=== PATIENT | female | born 1950 | race Caucasian/White ===

== ENCOUNTER 2018-02-04 09:23 | Inpatient (IN) | payer MEDICARE, BC ==
[2018-02-04] MEDS ORDERED: HYDROmorphone 1 MG/ML Syringe IVPUSH ONE (10:09)
--- NOTE | 2018-02-04 10:12 | EDM.PDOC ---
ED HPI GENERAL MEDICAL PROBLEM - General Chief Complaint: Abdominal Pain Stated Complaint: VOMITING, HERNIA Time Seen by Provider: 02/04/18 10:00 Source of Information: Reports: Patient, Family History Limitations: Reports: No Limitations - History of Present Illness INITIAL COMMENTS - FREE TEXT/NARRATIVE: 67-year-old female with chronic abdominal hernias, history of gastric bypass and colon cancer has an abdominal wall hernia that has been bothering her for months, but they wanted her to "lose some weight before surgery" for the past 12 -24 hours it's become incarcerated in the anterior aspect of the abdomen. It's firm, painful, and the patient feels very ill. No shortness of breath, no fevers. Onset: Gradual (Over the past 12 hours) Location: Reports: Abdomen Quality: Reports: Sharp, Stabbing Severity: Severe Abdominal Pain Score (Numeric/FACES): 10 - Related Data Allergies Allergy/AdvReac Type Severity Reaction Status Date / Time No Known Allergies Allergy Verified 02/04/18 10:13 Home Meds: Home Meds Atenolol [Tenormin] 25 mg PO DAILY 02/04/18 [History] Fluticasone Propionate [Flonase] 16 gm NS DAILY 02/04/18 [History] Gabapentin [Neurontin] 300 mg PO TID 02/04/18 [History] Losartan/Hydrochlorothiazide [Losartan-HCTZ 100-25 MG] 1 each PO DAILY 02/04/18 [History] amLODIPine Besylate [Norvasc] 5 mg PO DAILY 02/04/18 [History] ED ROS GENERAL - Review of Systems Review Of Systems: See Below Constitutional: Reports: Malaise. Denies: Fever, Chills Respiratory: Denies: Shortness of Breath Cardiovascular: Denies: Chest Pain GI/Abdominal: Reports: Abdominal Pain, Nausea. Denies: Vomiting Skin: Reports: Pallor Neurological: Reports: No Symptoms Psychiatric: Reports: No Symptoms ED EXAM, GI/ABD - Physical Exam Exam: See Below Exam Limited By: No Limitations General Appearance: Alert, Moderate Distress (Patient is extremely uncomfortable ) Eyes: Bilateral: Normal Appearance (No jaundice) Respiratory/Chest: No Respiratory Distress, Lungs Clear Cardiovascular: Regular Rate, Rhythm GI/Abdominal Exam: Rigid, Other (Patient has a fairly large transverse mass through the mid abdomen which is very tender to palpation, there are also well- healed surgical scars from past surgeries) Extremities: No: Pedal Edema Neurological: Alert, Oriented Psychiatric: Anxious Skin Exam: Warm, Dry, Pallor Course - Vital Signs Last Recorded V/S: Last Vital Signs Temp 99.5 F 02/04/18 15:03 Pulse 84 02/04/18 15:03 Resp 18 02/04/18 15:03 BP 119/47 L 02/04/18 15:03 Pulse Ox 100 02/04/18 15:03 - Orders/Labs/Meds Orders: Active Orders 24 hr Category Date Time Status Abdomen Pelvis wo Cont [CT] Stat Exams 02/04/18 10:10 Taken CULTURE ANAEROBIC [RM] Routine Lab 02/04/18 12:17 Results CULTURE WOUND + SMEAR [RM] Routine Lab 02/04/18 12:17 Results HYDROmorphone/Normal Saline [Dilaudid RAG SORTER [employer] CUTTER 15 MG in NS Med 02/04/18 12:31 Active 30 ML] 0 mg IV ASDIRECTED PRN Naloxone [Narcan] Med 02/04/18 12:31 Active 0.1 mg IV ASDIRECTED PRN Sodium Chloride 0.9% [Normal Saline] 1,000 ml Med 02/04/18 10:15 Active IV ASDIRECTED Medication Orders Hydromorphone HCl (Dilaudid Washerette Machine Operator 15 Mg In Ns 30 Ml) 0 mg IV ASDIRECTED PRN; Protocol PRN Reason: RAG SORTER [employer] CUTTER PAIN CONTROL Sodium Chloride (Normal Saline) 1,000 mls @ 1,000 mls/hr IV ASDIRECTED [facility] Last Admin: 02/04/18 10:26 Dose: 1,000 mls/hr Potassium Chloride/Dextrose/Sod Cl (D5 1/2 Ns W/ 20 Meq/L Kcl) 1,000 mls @ 125 mls/hr IV ASDIRECTED [facility] Last Admin: 02/04/18 14:43 Dose: 125 mls/hr Piperacillin/Tazobactam/ (Dextrose 3.375 gm/ Premix) 50 mls @ 100 mls/hr IV Q6H [facility] Metoprolol Tartrate (Lopressor) 5 mg IVPUSH Q6H [facility] Naloxone HCl (Narcan) 0.1 mg IV ASDIRECTED PRN PRN Reason: decreased respiratory rate Ondansetron HCl (Zofran) 4 mg IVPUSH Q6H PRN PRN Reason: Nausea/Vomiting Labs: Laboratory Tests 02/04/18 02/04/18 02/04/18 Range/Units 10:09 10:09 10:09 WBC 8.9 (4.5-11.0) K/uL RBC 4.67 (3.30-5.50) M/uL Hgb 9.6 L (12.0-15.0) g/dL Hct 31.3 L (36.0-48.0) % MCV 67 L (80-98) fL MCH 21 L (27-31) pg MCHC 31 L (32-36) % Plt Count 339 (150-400) K/uL Neut % (Auto) 89 H (36-66) % Lymph % (Auto) 7 L (24-44) % [place] % (Auto) 4 (2-6) % Eos % (Auto) 0 L (2-4) % Baso % (Auto) 0 (0-1) % Sodium 135 L (140-148) mmol/L Potassium 4.1 (3.6-5.2) mmol/L Chloride 97 L (100-108) mmol/L Carbon Dioxide 26 (21-32) mmol/L Anion Gap 16.1 H (5.0-14.0) mmol/L BUN 21 H (7-18) mg/dL Creatinine 0.8 (0.6-1.0) mg/dL Est Cr Clr Drug Dosing 57.99 mL/min Estimated GFR (MDRD) > 60 (>60) Glucose 147 H (74-106) mg/dL Lactic Acid 2.0 (0.4-2.0) mmol/L Calcium 8.3 L (8.5-10.1) mg/dL Total Bilirubin 0.3 (0.2-1.0) mg/dL AST 24 (15-37) U/L ALT 32 (12-78) U/L Alkaline Phosphatase 61 (46-116) U/L Total Protein 6.9 (6.4-8.2) g/dL Albumin 3.7 (3.4-5.0) g/dL Globulin 3.2 (2.3-3.5) g/dL Albumin/Globulin Ratio 1.2 (1.2-2.2) Amylase 52 (25-115) U/L Lipase 99 (73-393) U/L Meds: Medications Generic Name Dose Route Start Last Admin Trade Name Samantha PRN Reason Stop Dose Admin Hydromorphone HCl 0 mg 02/04/18 12:31 Dilaudid Washerette Machine Operator 15 Mg In Ns 30 Ml IV ASDIRECTED PRN RAG SORTER [employer] CUTTER PAIN CONTROL Protocol Sodium Chloride 1,000 mls @ 1,000 mls/hr 02/04/18 10:15 02/04/18 10:26 Normal Saline IV 1,000 mls/hr ASDIRECTED [facility] Administration Potassium Chloride/Dextrose/Sod Cl 1,000 mls @ 125 mls/hr 02/04/18 13:45 14:43 D5 1/2 Ns W/ 20 Meq/L Kcl IV 125 mls/hr ASDIRECTED [facility] Administration Piperacillin/Tazobactam/ 50 mls @ 100 mls/hr 02/04/18 18:00 Dextrose 3.375 gm/ Premix IV Q6H N[facility] Metoprolol Tartrate 5 mg 02/04/18 16:00 Lopressor IVPUSH Q6H [facility] Naloxone HCl 0.1 mg 02/04/18 12:31 Narcan IV ASDIRECTED PRN decreased respiratory rate Ondansetron HCl 4 mg 02/04/18 13:27 Zofran IVPUSH Q6H PRN Nausea/Vomiting Discontinued Medications Generic Name Dose Route Start Last Admin Trade Name Samantha PRN Reason Stop Dose Admin Dexamethasone Confirm 02/04/18 11:43 Dexamethasone Administered 02/04/18 11:44 Dose 4 mg .ROUTE .STK-MED ONE Fentanyl Confirm 02/04/18 11:42 Sublimaze Administered 02/04/18 11:43 Dose 250 mcg .ROUTE .STK-MED ONE Glycopyrrolate Confirm 02/04/18 11:43 Robinul Administered 02/04/18 11:44 Dose 1 mg .ROUTE .STK-MED ONE Hydromorphone HCl 1 mg 02/04/18 10:09 02/04/18 10:27 Dilaudid IVPUSH 02/04/18 10:10 1 mg ONETIME ONE Administration Hydromorphone HCl 0.5 mg 02/04/18 11:20 02/04/18 11:25 Dilaudid IVPUSH 02/04/18 11:21 0.5 mg ONETIME ONE Administration Piperacillin/Tazobactam/ 50 mls @ 100 mls/hr 02/04/18 11:15 02/04/18 11:18 Dextrose 3.375 gm/ Premix IV 02/04/18 11:44 100 mls/hr ONETIME ONE Administration Sodium Chloride Confirm 02/04/18 13:06 Normal Saline Administered 02/04/18 13:07 Dose 10 mls @ as directed .ROUTE .STK-MED ONE Lactated Ringer's Confirm 02/04/18 13:06 Ringers, Lactated Administered 02/04/18 13:07 Dose 1,000 mls @ as directed .ROUTE .STK-MED ONE Ketamine HCl Confirm 02/04/18 11:48 Ketalar Administered 02/04/18 11:49 Dose 500 mg .ROUTE .STK-MED ONE Midazolam HCl Confirm 02/04/18 11:42 Versed 1 Mg/Ml Administered 02/04/18 11:43 Dose 2 mg .ROUTE .STK-MED ONE Naloxone HCl Confirm 02/04/18 13:20 Narcan Administered 02/04/18 13:21 Dose 0.4 mg .ROUTE .STK-MED ONE Neostigmine Methylsulfate Confirm 02/04/18 11:43 Neostigmine Administered 02/04/18 11:44 Dose 5 mg .ROUTE .STK-MED ONE Ondansetron HCl 4 mg 02/04/18 10:09 02/04/18 10:25 Zofran IVPUSH 02/04/18 10:10 4 mg ONETIME ONE Administration Ondansetron HCl Confirm 02/04/18 11:43 Zofran Administered 02/04/18 11:44 Dose 4 mg .ROUTE .STK-MED ONE Propofol Confirm 02/04/18 11:43 Diprivan 20 Ml Administered 02/04/18 11:44 Dose 200 mg .ROUTE .STK-MED ONE Rocuronium [place] Confirm 02/04/18 11:43 Zemuron Administered 02/04/18 11:44 Dose 50 mg .ROUTE .STK-MED ONE Succinylcholine Chloride Confirm 02/04/18 11:43 Quelicin Administered 02/04/18 11:44 Dose 200 mg .ROUTE .STK-MED ONE - Re-Assessments/Exams Free Text/Narrative Re-Assessment/Exam: 02/04/18 10:35 An IV was started, patient was given 1 mg of IV Dilaudid and 4 mg of IV Zofran as well as 1 L of normal saline fluid bolus. CBC, CMP and lactic acid were drawn and a CT scan of the abdomen and pelvis without contrast was obtained. Surgical consultation was obtained. 02/04/18 11:00 White count is normal, hemoglobin is 9.6. CT scan confirms a large ventral hernia with a likely small bowel obstruction caused by the hernia. Patient will be going to surgery. Departure - Departure Time of Disposition: 11:57 Disposition: Admitted As Inpatient 68 Condition: Fair Clinical Impression: Incarcerated hernia of abdominal cavity, Small bowel obstruction Abdominal pain Qualifiers: Abdominal location: generalized Qualified Code(s): R10.84 - Generalized abdominal pain - Discharge Information - My Orders Last 24 Hours: My Active Orders 02/04/18 10:10 Abdomen Pelvis wo Cont [CT] Stat 02/04/18 10:15 Sodium Chloride 0.9% [Normal Saline] 1,000 ml IV ASDIRECTED - Assessment/Plan Last 24 Hours: My Active Orders 02/04/18 10:10 Abdomen Pelvis wo Cont [CT] Stat 02/04/18 10:15 Sodium Chloride 0.9% [Normal Saline] 1,000 ml IV ASDIRECTED
[2018-02-04] MEDS ORDERED: Sodium Chloride 0.9% 1,000 ML IV SCH (10:15)
[2018-02-04] MEDS: Ondansetron 4 MG/2 ML SDV IVPUSH ONE ×2 (10:24→10:25)
[2018-02-04] MEDS ORDERED: Piperacillin/Tazobactam/Dext 3.375 GM in Premix Bag 1 BAG IV ONE (11:15)
[2018-02-04] MEDS ORDERED: HYDROmorphone 0.5 MG/0.5 ML Syringe IVPUSH ONE (11:20)
[2018-02-04] MEDS ORDERED: fentaNYL 250 MCG/5 ML SDV ONE (11:42)
[2018-02-04] MEDS ORDERED: Midazolam 1 MG/ML 2 ML SDV ONE (11:42)
[2018-02-04] MEDS ORDERED: Glycopyrrolate 0.2 MG/ML 5 ML MDV ONE (11:43)
[2018-02-04] MEDS ORDERED: Neostigmine Methylsulfate 1 MG/ML 5 ML Syringe ONE (11:43)
[2018-02-04] MEDS ORDERED: Dexamethasone 4 MG/ML SDV ONE (11:43)
[2018-02-04] MEDS ORDERED: Propofol 200 MG/20 ML SDV ONE (11:43)
[2018-02-04] MEDS ORDERED: Ondansetron 4 MG/2 ML SDV ONE (11:43)
[2018-02-04] MEDS ORDERED: Succinylcholine 200 MG/10 ML MDV ONE (11:43)
[2018-02-04] MEDS ORDERED: Rocuronium 50 MG/5 ML Vial ONE (11:43)
[2018-02-04] MEDS ORDERED: Ketamine 500 MG/5 ML MDV ONE (11:48)
[2018-02-04] MEDS ORDERED: Naloxone 0.4 MG/ML SDV IV PRN (12:31)
[2018-02-04] MEDS ORDERED: HYDROmorphone/Normal Saline 15 MG/30 ML PCA IV PRN (12:31)
[2018-02-04] MEDS ORDERED: Lactated Ringers 1,000 ML ONE (13:06)
[2018-02-04] MEDS ORDERED: Sodium Chloride 0.9% 10 ML ONE (13:06)
[2018-02-04] MEDS ORDERED: Naloxone 0.4 MG/ML SDV ONE (13:20)
[2018-02-04] MEDS ORDERED: Ondansetron 4 MG/2 ML SDV IVPUSH PRN (13:27)
[2018-02-04] MEDS: D5 1/2 NS w/ 20 mEq/L KCl 1,000 ML IV SCH ×2 (14:43→23:06)
[2018-02-04] MEDS: Metoprolol Tartrate 5 MG/5 ML SDV IVPUSH SCH ×2 (16:26→22:05)
[2018-02-04] MEDS: Piperacillin/Tazobactam/Dext 3.375 GM in Premix Bag 1 BAG IV SCH ×2 (17:02→23:07)
[2018-02-05] MEDS: Metoprolol Tartrate 5 MG/5 ML SDV IVPUSH SCH ×4 (03:34→21:46)
[2018-02-05] MEDS: Piperacillin/Tazobactam/Dext 3.375 GM in Premix Bag 1 BAG IV SCH ×4 (05:33→23:14)
[2018-02-05] MEDS: D5 1/2 NS w/ 20 mEq/L KCl 1,000 ML IV SCH ×2 (08:08→16:37)
--- NOTE | 2018-02-05 08:49 | PCM.SURGPN ---
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 Admission Diagnosis/Problem: Hernia with strangulation Functional Status: Reports: Pain Controlled, Ambulating, Urinating, Incentive Spirometry - Review of Systems General: Reports: No Symptoms HEENT: Reports: No Symptoms Pulmonary: Reports: No Symptoms Cardiovascular: Reports: No Symptoms Gastrointestinal: Denies: Flatus Genitourinary: Reports: No Symptoms Musculoskeletal: Reports: No Symptoms Skin: Reports: No Symptoms Neurological: Reports: No Symptoms Psychiatric: Reports: No Symptoms - Patient Data Vitals - Most Recent: Last Vital Signs Temp 99.4 F 02/05/18 03:26 Pulse 77 02/05/18 03:34 Resp 16 02/05/18 03:26 BP 120/44 L 02/05/18 03:34 Pulse Ox 96 02/05/18 07:12 Weight - Most Recent: 159 lb 9.835 oz I&O - Last 24 Hours: Intake & Output 02/04/18 02/05/18 02/05/18 22:59 06:59 14:59 Intake Total 339 1504 Output Total 375 300 Balance -36 1204 Lab Results Last 24 Hrs: Laboratory Results - last 24 hr 02/04/18 02/04/18 02/04/18 Range/Units 10:09 10:09 10:09 WBC 8.9 (4.5-11.0) K/uL RBC 4.67 (3.30-5.50) M/uL Hgb 9.6 L (12.0-15.0) g/dL Hct 31.3 L (36.0-48.0) % MCV 67 L (80-98) fL MCH 21 L (27-31) pg MCHC 31 L (32-36) % Plt Count 339 (150-400) K/uL Neut % (Auto) 89 H (36-66) % Lymph % (Auto) 7 L (24-44) % [place] % (Auto) 4 (2-6) % Eos % (Auto) 0 L (2-4) % Baso % (Auto) 0 (0-1) % Sodium 135 L (140-148) mmol/L Potassium 4.1 (3.6-5.2) mmol/L Chloride 97 L (100-108) mmol/L Carbon Dioxide 26 (21-32) mmol/L Anion Gap 16.1 H (5.0-14.0) mmol/L BUN 21 H (7-18) mg/dL Creatinine 0.8 (0.6-1.0) mg/dL Est Cr Clr Drug Dosing 57.99 mL/min Estimated GFR (MDRD) > 60 (>60) Glucose 147 H (74-106) mg/dL Lactic Acid 2.0 (0.4-2.0) mmol/L Calcium 8.3 L (8.5-10.1) mg/dL Total Bilirubin 0.3 (0.2-1.0) mg/dL AST 24 (15-37) U/L ALT 32 (12-78) U/L Alkaline Phosphatase 61 (46-116) U/L Total Protein 6.9 (6.4-8.2) g/dL Albumin 3.7 (3.4-5.0) g/dL Globulin 3.2 (2.3-3.5) g/dL Albumin/Globulin Ratio 1.2 (1.2-2.2) Amylase 52 (25-115) U/L Lipase 99 (73-393) U/L 02/05/18 02/05/18 Range/Units 06:00 06:00 WBC 10.0 (4.5-11.0) K/uL RBC 4.19 (3.30-5.50) M/uL Hgb 8.5 L (12.0-15.0) g/dL Hct 28.0 L (36.0-48.0) % MCV 67 L (80-98) fL MCH 20 L (27-31) pg MCHC 30 L (32-36) % Plt Count (150-400) K/uL Neut % (Auto) (36-66) % Lymph % (Auto) (24-44) % [place] % (Auto) (2-6) % Eos % (Auto) (2-4) % Baso % (Auto) (0-1) % Sodium 134 L (140-148) mmol/L Potassium 4.1 (3.6-5.2) mmol/L Chloride 101 (100-108) mmol/L Carbon Dioxide 23 (21-32) mmol/L Anion Gap 14.1 H (5.0-14.0) mmol/L BUN 10 D (7-18) mg/dL Creatinine 0.7 (0.6-1.0) mg/dL Est Cr Clr Drug Dosing 66.28 mL/min Estimated GFR (MDRD) > 60 (>60) Glucose 147 H (74-106) mg/dL Lactic Acid (0.4-2.0) mmol/L Calcium 7.8 L (8.5-10.1) mg/dL Total Bilirubin (0.2-1.0) mg/dL AST (15-37) U/L ALT (12-78) U/L Alkaline Phosphatase (46-116) U/L Total Protein (6.4-8.2) g/dL Albumin (3.4-5.0) g/dL Globulin (2.3-3.5) g/dL Albumin/Globulin Ratio (1.2-2.2) Amylase (25-115) U/L Lipase (73-393) U/L Juan Manuel Results Last 24 Hrs: Microbiology 02/04/18 12:17 Gram Stain - Final Peritoneal Fluid Wound Culture - Preliminary Anaerobic Culture - Preliminary NO GROWTH AFTER 1 DAY Med Orders - Current: Current Medications Hydromorphone HCl (Dilaudid Transfer Worker 15 Mg In Ns 30 Ml) 0 mg IV ASDIRECTED PRN; Protocol PRN Reason: PRODUCT RESPONSIBILITY LIAISON PAIN CONTROL Sodium Chloride (Normal Saline) 1,000 mls @ 1,000 mls/hr IV ASDIRECTED [facility] Last Admin: 02/04/18 10:26 Dose: 1,000 mls/hr Potassium Chloride/Dextrose/Sod Cl (D5 1/2 Ns W/ 20 Meq/L Kcl) 1,000 mls @ 125 mls/hr IV ASDIRECTED [facility] Last Admin: 02/05/18 08:08 Dose: 125 mls/hr Piperacillin/Tazobactam/ (Dextrose 3.375 gm/ Premix) 50 mls @ 100 mls/hr IV Q6H [facility] Last Admin: 02/05/18 05:33 Dose: 100 mls/hr Metoprolol Tartrate (Lopressor) 5 mg IVPUSH Q6H [facility] Last Admin: 02/05/18 03:34 Dose: Not Given Naloxone HCl (Narcan) 0.1 mg IV ASDIRECTED PRN PRN Reason: decreased respiratory rate Ondansetron HCl (Zofran) 4 mg IVPUSH Q6H PRN PRN Reason: Nausea/Vomiting Discontinued Medications Dexamethasone (Dexamethasone) Confirm Administered Dose 4 mg .ROUTE .STK-MED ONE Stop: 02/04/18 11:44 Fentanyl (Sublimaze) Confirm Administered Dose 250 mcg .ROUTE .STK-MED ONE Stop: 02/04/18 11:43 Glycopyrrolate (Robinul) Confirm Administered Dose 1 mg .ROUTE .ST-MED ONE Stop: 02/04/18 11:44 Hydromorphone HCl (Dilaudid) 1 mg IVPUSH ONETIME ONE Stop: 02/04/18 10:10 Last Admin: 02/04/18 10:27 Dose: 1 mg Hydromorphone HCl (Dilaudid) 0.5 mg IVPUSH ONETIME ONE Stop: 02/04/18 11:21 Last Admin: 02/04/18 11:25 Dose: 0.5 mg Piperacillin/Tazobactam/ (Dextrose 3.375 gm/ Premix) 50 mls @ 100 mls/hr IV ONETIME ONE Stop: 02/04/18 11:44 Last Admin: 02/04/18 11:18 Dose: 100 mls/hr Sodium Chloride (Normal Saline) Confirm Administered Dose 10 mls @ as directed .ROUTE .ST-MED ONE Stop: 02/04/18 13:07 Lactated Ringer's (Ringers, Lactated) Confirm Administered Dose 1,000 mls @ as directed .ROUTE .ST-MED ONE Stop: 02/04/18 13:07 Ketamine HCl (Ketalar) Confirm Administered Dose 500 mg .ROUTE .ST-MED ONE Stop: 02/04/18 11:49 Midazolam HCl (Versed 1 Mg/Ml) Confirm Administered Dose 2 mg .ROUTE .STK-MED ONE Stop: 02/04/18 11:43 Naloxone HCl (Narcan) Confirm Administered Dose 0.4 mg .ROUTE .STK-MED ONE Stop: 02/04/18 13:21 Neostigmine Methylsulfate (Neostigmine) Confirm Administered Dose 5 mg .ROUTE .STK-MED ONE Stop: 02/04/18 11:44 Ondansetron HCl (Zofran) 4 mg IVPUSH ONETIME ONE Stop: 02/04/18 10:10 Last Admin: 02/04/18 10:25 Dose: 4 mg Ondansetron HCl (Zofran) Confirm Administered Dose 4 mg .ROUTE .STK-MED ONE Stop: 02/04/18 11:44 Propofol (Diprivan 20 Ml) Confirm Administered Dose 200 mg .ROUTE .STK-MED ONE Stop: 02/04/18 11:44 Rocuronium [place] (Zemuron) Confirm Administered Dose 50 mg .ROUTE .STK-MED ONE Stop: 02/04/18 11:44 Succinylcholine Chloride (Quelicin) Confirm Administered Dose 200 mg .ROUTE .STK -MED ONE Stop: 02/04/18 11:44 - Exam Wound/Incisions: Drainage Quality Assessment: DVT Prophylaxis (No Lovenox as Hgb is down a little. ) General: Alert, Oriented, Cooperative, No Acute Distress GI/Abdominal Exam: Abnormal Bowel Sounds (Quite). No: Normal Bowel Sounds Extremities: Normal Inspection Skin: Warm, Dry, Intact Neurological: No New Focal Deficit Psy/Mental Status: Alert, Normal Affect, Normal Mood - Problem List & Annotations (1) Strangulated ventral incisional hernia SNOMED Code(s): 035826948 Code(s): K43.0 - INCISIONAL HERNIA WITH OBSTRUCTION, WITHOUT GANGRENE Status: Acute Current Visit: Yes - Problem List Review Problem List Initiated/Reviewed/Updated: Yes - My Orders Last 24 Hours: Active Orders 24 hr Category Date Time Status Patient Status [ADT] Routine ADT 02/04/18 13:27 Active Ambulate [RC] PER UNIT ROUTINE Care 02/04/18 13:27 Active Antiembolic Devices [RC] .Routine Care 02/04/18 13:41 Active Gastrointestinal Tube Mgmt [RC] ASDIRECTED Care 02/04/18 13:39 Active Head of Bed Elevation [RC] ASDIRECTED Care 02/04/18 13:39 Active Intake and Output [RC] Q4HR Care 02/04/18 13:39 Active Notify Provider Vital Signs [RC] PRN Care 02/04/18 13:40 Active Oxygen Therapy [RC] PRN Care 02/04/18 13:27 Active Pulse Oximetry [RC] CONTINUOUS Care 02/04/18 13:40 Active RT Incentive Spirometry [RC] ASDIRECTED Care 02/04/18 13:27 Active Up With Assistance [RC] ASDIRECTED Care 02/04/18 13:27 Active Up to Chair [RC] ASDIRECTED Care 02/04/18 13:27 Active Urinary Catheter Removal [RC] Per Unit Routine Care 02/04/18 13:27 Inactive VTE/DVT Education [RC] Click to Edit Care 02/04/18 13:41 Active Vital Signs [RC] PER UNIT ROUTINE Care 02/04/18 13:27 Active Respiratory Care Assess and Treatment [CONS] Routine Cons 02/04/18 13:27 Active Nothing Per Oral Diet [DIET] Diet 02/04/18 Dinner Active Abdomen Pelvis wo Cont [CT] Stat Exams 02/04/18 10:10 Taken BASIC METABOLIC PANEL,BMP [CHEM] DAILY Lab 02/06/18 05:11 Ordered BASIC METABOLIC PANEL,BMP [CHEM] DAILY Lab 02/07/18 05:11 Ordered BASIC METABOLIC PANEL,BMP [CHEM] DAILY Lab 02/08/18 05:11 Ordered BASIC METABOLIC PANEL,BMP [CHEM] DAILY Lab 02/09/18 05:11 Ordered BASIC METABOLIC PANEL,BMP [CHEM] DAILY Lab 02/10/18 05:11 Ordered CBC W/O DIFF,HEMOGRAM [HEME] DAILY Lab 02/06/18 05:11 Ordered CBC W/O DIFF,HEMOGRAM [HEME] DAILY Lab 02/07/18 05:11 Ordered CBC W/O DIFF,HEMOGRAM [HEME] DAILY Lab 02/08/18 05:11 Ordered CBC W/O DIFF,HEMOGRAM [HEME] DAILY Lab 02/09/18 05:11 Ordered CBC W/O DIFF,HEMOGRAM [HEME] DAILY Lab 02/10/18 05:11 Ordered CULTURE ANAEROBIC [RM] Routine Lab 02/04/18 12:17 Results CULTURE WOUND + SMEAR [RM] Routine Lab 02/04/18 12:17 Results D5 1/2 NS w/ 20 mEq/L KCl 1,000 ml Med 02/04/18 13:45 Active IV ASDIRECTED HYDROmorphone/Normal Saline [Dilaudid PRODUCT RESPONSIBILITY LIAISON 15 MG in NS Med 02/04/18 12:31 Active 30 ML] 0 mg IV ASDIRECTED PRN Metoprolol Tartrate [Lopressor] Med 02/04/18 16:00 Active 5 mg IVPUSH Q6H Naloxone [Narcan] Med 02/04/18 12:31 Active 0.1 mg IV ASDIRECTED PRN Ondansetron [Zofran] Med 02/04/18 13:27 Active 4 mg IVPUSH Q6H PRN Piperacillin/Tazobactam/Dext [Zosyn in Dextrose Iso- Med 02/04/18 18:00 Active Osmotic 3.375 GM] 3.375 gm Premix Bag 1 bag IV Q6H Sodium Chloride 0.9% [Normal Saline] 1,000 ml Med 02/04/18 10:15 Active IV ASDIRECTED Abdominal Binder [OM.PC] Per Unit Routine Oth 02/04/18 13:39 Ordered DVT/VTE Prophylaxis Reflex [OM.PC] Per Unit Routine Oth 02/04/18 13:41 Ordered Sequential Compression Device [OM.PC] Routine Oth 02/04/18 13:27 Ordered Resuscitation Status Routine Resus Stat 02/04/18 13:27 Ordered Medication Orders Hydromorphone HCl (Dilaudid Transfer Worker 15 Mg In Ns 30 Ml) 0 mg IV ASDIRECTED PRN; Protocol PRN Reason: PRODUCT RESPONSIBILITY LIAISON PAIN CONTROL Sodium Chloride (Normal Saline) 1,000 mls @ 1,000 mls/hr IV ASDIRECTED [facility] Last Admin: 02/04/18 10:26 Dose: 1,000 mls/hr Potassium Chloride/Dextrose/Sod Cl (D5 1/2 Ns W/ 20 Meq/L Kcl) 1,000 mls @ 125 mls/hr IV ASDIRECTED [facility] Last Admin: 02/05/18 08:08 Dose: 125 mls/hr Infusion: 02/05/18 07:06 Dose: 125 mls/hr Admin: 02/04/18 23:06 Dose: 125 mls/hr Infusion: 02/04/18 22:43 Dose: 125 mls/hr Admin: 02/04/18 14:43 Dose: 125 mls/hr Piperacillin/Tazobactam/ (Dextrose 3.375 gm/ Premix) 50 mls @ 100 mls/hr IV Q6H [facility] Last Admin: 02/05/18 05:33 Dose: 100 mls/hr Admin: 02/04/18 23:07 Dose: 100 mls/hr Admin: 02/04/18 17:02 Dose: 100 mls/hr Metoprolol Tartrate (Lopressor) 5 mg IVPUSH Q6H [facility] Last Admin: 02/05/18 03:34 Dose: Not Given Admin: 02/04/18 22:05 Dose: Not Given Admin: 02/04/18 16:26 Dose: 5 mg Naloxone HCl (Narcan) 0.1 mg IV ASDIRECTED PRN PRN Reason: decreased respiratory rate Ondansetron HCl (Zofran) 4 mg IVPUSH Q6H PRN PRN Reason: Nausea/Vomiting - Assessment Assessment (Free Text/Narrative):: She appears well. Hgb is down a little. No NG output. She does not want it removed if we might have to put it back in. - Plan Plan (Free Text/Narrative):: No Lovenox. Plug NG, restart PRN. D/C Marifer.
[2018-02-06] MEDS: D5 1/2 NS w/ 20 mEq/L KCl 1,000 ML IV SCH (01:29)
[2018-02-06] MEDS: Metoprolol Tartrate 5 MG/5 ML SDV IVPUSH SCH ×4 (03:06→22:52)
[2018-02-06] MEDS: Piperacillin/Tazobactam/Dext 3.375 GM in Premix Bag 1 BAG IV SCH ×4 (05:32→23:07)
[2018-02-06] MEDS ORDERED: Bisacodyl 10 MG Supp RECTAL ONE (06:40)
[2018-02-06] MEDS ORDERED: D5 1/2 NS w/ 20 mEq/L KCl 1,000 ML IV SCH (06:45)
[2018-02-06] MEDS: Ondansetron 4 MG/2 ML SDV IVPUSH ONE (09:35)
--- NOTE | 2018-02-06 10:28 | OR ---
DATE OF PROCEDURE: 02/04/2018 PREOPERATIVE DIAGNOSIS: Incarcerated strangulated incisional hernia. POSTOPERATIVE DIAGNOSES: Incarcerated strangulated incisional hernia with infarcted small bowel. PROCEDURE: 1. Exploratory laparotomy. 2. Reduction of strangulated hernia. 3. Small bowel resection with primary anastomosis. SURGEON: Hal Weinberg MD. ANESTHESIA: General endotracheal. INDICATION: This 67-year-old white female has a history of a Jessica-en-Y gastric bypass done in the [facility] in the remote past. Additionally, she has a history of colon cancer for which she underwent a bowel resection. She subsequently has developed multiple incisional hernias. These have been repaired in the past with mesh. She has a recurrent midline hernia of which she has been told in the [facility] that she should lose a little weight before repairing it. She is up here in [facility] visiting when last night she developed severe abdominal pain. She tried to "tough it out," but her son finally convinced her to come into the emergency room. She came into the emergency room where she is found to have a strangulated hernia. CAT scan confirms there is small bowel within it. She is taken to the operating room for an exploratory laparotomy. I counseled her for surgery including risks and alternatives, and she gave her informed consent to proceed. DESCRIPTION OF PROCEDURE: After adequate general endotracheal anesthesia was obtained, a Caicedo catheter was placed. Her abdomen was prepped and draped in the usual sterile fashion. Time-out was held. A midline incision was made over the strangulated hernia. It was extended superiorly and inferiorly beyond this a little. We then entered the abdomen inferior to the strangulated hernia by carefully dividing the linea alba and then the peritoneum. We encountered essentially no adhesions in the abdominal cavity. We extended the incision carefully superiorly up to the strangulated hernia. We were able to then open the fascia and release the hernia. A foul odor was encountered. We excised the hernia sac throughout its entire length. We elevated the strangulated portion up out of the abdomen. It was infarcted. We divided the bowel proximally and distally to this with the [place] using a blue load. The intervening mesentery was divided with the [place] using a white load. The specimen was delivered from the field. There was also some fluid in the hernia sac, which was sent for Gram stain and culture. The Gram stain returned gram-positive cocci and gram- negative rods. A functional end-to-end anastomosis was then performed. This was done by opening the antimesenteric end of each staple line and placing an 80 mm blue load stapler in each limb. We then fired the stapler. The distal end of the staple line was bolstered with 3-0 silk suture. The stapler was removed. The opening through which the staple had been placed was then closed again with a blue load of allie. This last staple line was oversewn with Lembert stitches of 3-0 GI silk. All looked well. The abdomen was irrigated and suctioned dry. We did excise the hernia sac and sent it to Pathology. This was fairly large. 3- 0 Vicryl was then used to close the mesenteric defect. The abdomen was copiously irrigated again with warm saline and suctioned dry. Tisseel fibrin sealant was placed over the anastomosis, and it was then returned to the abdominal cavity. All looked well. We then closed the fascia which had mesh present with a running stitch of #1 Prolene. The incision was irrigated and suctioned dry. We covered the Prolene with subcutaneous tissue using 3-0 Vicryl suture. The incision was then packed open with plan for delayed primary closure in a few days. A sterile dressing was applied. The anesthesia was reversed. She was extubated and brought to recovery room in fair condition. Hal Weinberg MD /[id number] VANESSA
[2018-02-07] MEDS: Metoprolol Tartrate 5 MG/5 ML SDV IVPUSH SCH ×2 (03:32→10:00)
[2018-02-07] MEDS: Piperacillin/Tazobactam/Dext 3.375 GM in Premix Bag 1 BAG IV SCH ×4 (05:48→23:15)
[2018-02-07] MEDS ORDERED: Bupivacaine 0.5% 50 ML MDV ONE (06:42)
[2018-02-07] MEDS ORDERED: Lidocaine 1% with EPINEPHrine 1:100,000 50 ML MDV ONE (06:42)
[2018-02-07] MEDS ORDERED: Midazolam 1 MG/ML 2 ML SDV ONE (07:05)
[2018-02-07] MEDS ORDERED: fentaNYL 100 MCG/2 ML SDV ONE (07:05)
[2018-02-07] MEDS ORDERED: Propofol 200 MG/20 ML SDV ONE (07:05)
--- NOTE | 2018-02-07 10:02 | OR ---
DATE OF PROCEDURE: 02/07/2018 PREOPERATIVE DIAGNOSIS: Open incision status post bowel resection for strangulated incisional hernia. POSTOPERATIVE DIAGNOSIS: Open incision status post bowel resection for strangulated incisional hernia. PROCEDURE: Delayed primary closure. SURGEON: Hal Weinberg MD. ANESTHESIA: IV anesthesia with monitored anesthesia care. INDICATION: This 67-year-old white female underwent, almost three days ago, an exploratory laparotomy with small bowel resection for a strangulated incisional hernia. Fluid in the hernia sac grew Strep viridans and E. coli. Her incision was left open for delayed primary closure. She is taken to the operating room at this time for this. She is doing well. I counseled her for a delayed primary closure including risks and alternatives, and she gave her informed consent to proceed. DESCRIPTION OF PROCEDURE: After adequate IV anesthesia was obtained, the dressings were removed. Her abdomen was prepped and draped in the usual sterile fashion. Time-out was held. The incision looked well. It was irrigated with normal saline and patted dry. The skin was then closed with skin allie. A sterile dressing was applied. The patient tolerated the procedure well and was brought to recovery room in a good condition. Hal Weinberg MD /[id number] MTDD
[2018-02-07] MEDS: Gabapentin 300 MG Cap PO SCH ×2 (16:10→21:08)
[2018-02-07] MEDS: amLODIPine 5 MG Tab PO SCH (16:11)
[2018-02-07] MEDS: Atenolol 25 MG Tab PO SCH (16:12)
[2018-02-07] MEDS: Acetaminophen/HYDROcodone 325-5 MG Tab PO PRN (17:48)
[2018-02-08] MEDS: Piperacillin/Tazobactam/Dext 3.375 GM in Premix Bag 1 BAG IV SCH ×2 (05:11→13:27)
[2018-02-08] MEDS: Acetaminophen/HYDROcodone 325-5 MG Tab PO PRN ×2 (06:17→14:00)
[2018-02-08] MEDS: amLODIPine 5 MG Tab PO SCH (08:13)
[2018-02-08] MEDS: Gabapentin 300 MG Cap PO SCH ×2 (08:13→14:01)
[2018-02-08] MEDS: Atenolol 25 MG Tab PO SCH (08:13)
[2018-02-08] MEDS ORDERED: Hydrochlorothiazide 25 MG Tab PO SCH (09:00)
[2018-02-08] MEDS ORDERED: Losartan 50 MG Tab PO SCH (09:00)
--- NOTE | 2018-02-19 10:11 | PCM.SURGPN ---
- General Info Date of Service: 02/06/18 Date of Surgery/Procedure: 02/04/18 POD#: 2 Functional Status: Reports: Pain Controlled, Ambulating, Urinating - Review of Systems General: Reports: No Symptoms HEENT: Reports: No Symptoms Pulmonary: Reports: No Symptoms Cardiovascular: Reports: No Symptoms Gastrointestinal: Denies: Flatus Genitourinary: Reports: No Symptoms Musculoskeletal: Reports: No Symptoms Skin: Reports: No Symptoms Neurological: Reports: No Symptoms Psychiatric: Reports: No Symptoms - Patient Data Vitals - Most Recent: Last Vital Signs Temp 98.0 F 02/08/18 11:08 Pulse 62 02/08/18 11:08 Resp 16 02/08/18 11:08 BP 143/67 H 02/08/18 11:08 Pulse Ox 97 02/08/18 11:08 Weight - Most Recent: 159 lb 9.835 oz Med Orders - Current: Current Medications Discontinued Medications Hydrocodone Bitart/Acetaminophen ([place] 325-5 Mg) 1 - 2 tab PO Q4H PRN PRN Reason: Pain Last Admin: 02/08/18 14:00 Dose: 2 tab Amlodipine Besylate (Norvasc) 5 mg PO DAILY [facility] Last Admin: 02/08/18 08:13 Dose: 5 mg Atenolol (Tenormin) 25 mg PO DAILY [facility] Last Admin: 02/08/18 08:13 Dose: 25 mg Bisacodyl (Dulcolax) 10 mg RECTAL ONETIME ONE Stop: 02/06/18 06:41 Last Admin: 02/06/18 10:40 Dose: 10 mg Bupivacaine HCl (Marcaine 0.5%) Confirm Administered Dose 50 ml .ROUTE .STK-MED ONE Stop: 02/07/18 06:43 Dexamethasone (Dexamethasone) Confirm Administered Dose 4 mg .ROUTE .STK-MED ONE Stop: 02/04/18 11:44 Fentanyl (Sublimaze) Confirm Administered Dose 250 mcg .ROUTE .STK-MED ONE Stop: 02/04/18 11:43 Fentanyl (Sublimaze) Confirm Administered Dose 100 mcg .ROUTE .STK-MED ONE Stop: 02/07/18 07:06 Gabapentin (Neurontin) 300 mg PO TID [facility] Last Admin: 02/08/18 14:01 Dose: 300 mg Glycopyrrolate (Robinul) Confirm Administered Dose 1 mg .ROUTE .STK-MED ONE Stop: 02/04/18 11:44 Hydrochlorothiazide (Hydrochlorothiazide) 25 mg PO DAILY [facility] Last Admin: 02/08/18 08:12 Dose: 25 mg Hydromorphone HCl (Dilaudid) 1 mg IVPUSH ONETIME ONE Stop: 02/04/18 10:10 Last Admin: 02/04/18 10:27 Dose: 1 mg Hydromorphone HCl (Dilaudid) 0.5 mg IVPUSH ONETIME ONE Stop: 02/04/18 11:21 Last Admin: 02/04/18 11:25 Dose: 0.5 mg Hydromorphone HCl (Dilaudid Stockbroker 15 Mg In Ns 30 Ml) 0 mg IV ASDIRECTED PRN; Protocol PRN Reason: [employer] PAIN CONTROL Last Admin: 02/07/18 09:40 Dose: 15 mg Sodium Chloride (Normal Saline) 1,000 mls @ 1,000 mls/hr IV ASDIRECTED [facility] Last Admin: 02/04/18 10:26 Dose: 1,000 mls/hr Piperacillin/Tazobactam/ (Dextrose 3.375 gm/ Premix) 50 mls @ 100 mls/hr IV ONETIME ONE Stop: 02/04/18 11:44 Last Admin: 02/04/18 11:18 Dose: 100 mls/hr Sodium Chloride (Normal Saline) Confirm Administered Dose 10 mls @ as directed .ROUTE .[facility] ONE Stop: 02/04/18 13:07 Lactated Ringer's (Ringers, Lactated) Confirm Administered Dose 1,000 mls @ as directed .ROUTE .[facility] ONE Stop: 02/04/18 13:07 Potassium Chloride/Dextrose/Sod Cl (D5 1/2 Ns W/ 20 Meq/L Kcl) 1,000 mls @ 125 mls/hr IV ASDIRECTED [facility] Last Admin: 02/06/18 01:29 Dose: 125 mls/hr Piperacillin/Tazobactam/ (Dextrose 3.375 gm/ Premix) 50 mls @ 100 mls/hr IV Q6H [facility] Last Admin: 02/08/18 13:27 Dose: Not Given Potassium Chloride/Dextrose/Sod Cl (D5 1/2 Ns W/ 20 Meq/L Kcl) 1,000 mls @ 50 mls/hr IV ASDIRECTED [facility] Last Admin: 02/06/18 17:05 Dose: 50 mls/hr Ketamine HCl (Ketalar) Confirm Administered Dose 500 mg .ROUTE .STK-MED ONE Stop: 02/04/18 11:49 Lidocaine/Epinephrine (Xylocaine 1% With Epinephrine 1:100,000) Confirm Administered Dose 50 ml .ROUTE .STK-MED ONE Stop: 02/07/18 06:43 Losartan Potassium (Cozaar) 100 mg PO DAILY [facility] Last Admin: 02/08/18 08:13 Dose: 100 mg Metoprolol Tartrate (Lopressor) 5 mg IVPUSH Q6H [facility] Last Admin: 02/07/18 10:00 Dose: Not Given Midazolam HCl (Versed 1 Mg/Ml) Confirm Administered Dose 2 mg .ROUTE .STK-MED ONE Stop: 02/04/18 11:43 Midazolam HCl (Versed 1 Mg/Ml) Confirm Administered Dose 2 mg .ROUTE .STK-MED ONE Stop: 02/07/18 07:06 Naloxone HCl (Narcan) 0.1 mg IV ASDIRECTED PRN PRN Reason: decreased respiratory rate Naloxone HCl (Narcan) Confirm Administered Dose 0.4 mg .ROUTE .STK-MED ONE Stop: 02/04/18 13:21 Neostigmine Methylsulfate (Neostigmine) Confirm Administered Dose 5 mg .ROUTE .STK-MED ONE Stop: 02/04/18 11:44 Ondansetron HCl (Zofran) 4 mg IVPUSH ONETIME ONE Stop: 02/04/18 10:10 Last Admin: 02/06/18 09:35 Dose: Not Given Ondansetron HCl (Zofran) Confirm Administered Dose 4 mg .ROUTE .STK-MED ONE Stop: 02/04/18 11:44 Ondansetron HCl (Zofran) 4 mg IVPUSH Q6H PRN PRN Reason: Nausea/Vomiting Propofol (Diprivan 20 Ml) Confirm Administered Dose 200 mg .ROUTE .STK-MED ONE Stop: 02/04/18 11:44 Propofol (Diprivan 20 Ml) Confirm Administered Dose 200 mg .ROUTE .STK-MED ONE Stop: 02/07/18 07:06 Rocuronium [place] (Zemuron) Confirm Administered Dose 50 mg .ROUTE .STK-MED ONE Stop: 02/04/18 11:44 Succinylcholine Chloride (Quelicin) Confirm Administered Dose 200 mg .ROUTE .K -MED ONE Stop: 02/04/18 11:44 - Exam Wound/Incisions: Dressing Dry and Intact General: Alert, Oriented, Cooperative Lungs: Clear to Auscultation, Normal Respiratory Effort Cardiovascular: Regular Rate, Regular Rhythm GI/Abdominal Exam: Abnormal Bowel Sounds (Hypoactive) Extremities: Normal Inspection Skin: Warm, Dry, Intact Neurological: No New Focal Deficit Psy/Mental Status: Alert, Normal Affect, Normal Mood - Problem List & Annotations (1) Strangulated ventral incisional hernia SNOMED Code(s): 573055123 Code(s): K43.0 - INCISIONAL HERNIA WITH OBSTRUCTION, WITHOUT GANGRENE Status: Acute - Problem List Review Problem List Initiated/Reviewed/Updated: Yes - Assessment Assessment (Free Text/Narrative):: Doing well. Waiting for GI recovery. Essentially no NG output. - Plan Plan (Free Text/Narrative):: D/C NG tube. Plan DPC tomorrow.
--- NOTE | 2018-02-19 10:21 | PCM.DCSUM1 ---
Discharge Summary - Hospital Course Free Text/Narrative:: This 68 year old white female is s/p a RNY GBP in the [facility] in the remote past. She also has undergone a bowel resection in the [facility] for colon cancer in the [facility]. She subsequently has had incisional hernias repaired there in the past with mesh. She has developed another incisonal hernia for which she was told she should lose weight before undergoing repair. She was visiting in the [place] area when the hernia protruded, was quite painful and could not be reduced. She tried to "tough it out," but her son finally talked her into coming in to the ER on February 04, 2018. Here she was found to have a strangulated incisional hernia. She was taken to the OR where the hernia sac was opened releasing a foul odor with some fluid encountered which cultured Strep viridans and E coli. She was started on Zosyn preoperatively and continued on it post operatively. She underwent a bowel resection with primary anastomosis. Her wound was left open for delaped primary closure which was performed on February 07, 2018. She then had a bowel movement so was started on food. She was eating well with bowel function recovered so was discharge home on February 08, 2018 in good condition. I will see her next week for skin staple removal. Brief History: See above narrative. - Discharge Data Discharge Date: 02/08/18 Discharge Disposition: Home, Self-Care 01 Condition: Fair - Discharge Diagnosis/Problem(s) (1) Strangulated ventral incisional hernia SNOMED Code(s): 723771134 ICD Code: K43.0 - INCISIONAL HERNIA WITH OBSTRUCTION, WITHOUT GANGRENE Status: Acute - Patient Summary/Data Operative Procedure(s) Performed: Exploratory laparotomy, reduction of strangulated incisional hernia, small bowel resection with primary anastomosis. Delayed primary closure. Consults: Consultations 02/04/18 13:27 Respiratory Care Assess and Treatment [CONS] Routine Comment: Physician Instructions: - Patient Instructions Diet: Regular Diet as Tolerated Diet, Other: soft foods for 1 week Activity: As Tolerated, No Lifting Over 10 Pounds Activity, Other: for 6 weeks Driving: Do Not Drive Driving, Other: while on narcotic pain medications Showering/Bathing: May Shower Wound/Incision Care: Keep Operative Site/Wound Site Clean and Dry Notify Provider of: Fever, Increased Pain, Swelling and Redness, Drainage, Nausea and/or Vomiting - Discharge Plan Prescriptions/Med Rec: Acetaminophen/HYDROcodone [[place] 325-5 MG] 1 - 2 tab PO Q4H PRN #30 tab PRN Reason: Pain Home Medications: Home Meds Atenolol [Tenormin] 25 mg PO DAILY 02/04/18 [History] Doxycycline Monohydrate 100 mg PO BID 02/04/18 [History] Fluticasone Propionate [Flonase] 16 gm NS DAILY 02/04/18 [History] Gabapentin [Neurontin] 300 mg PO TID 02/04/18 [History] Losartan/Hydrochlorothiazide [Losartan-HCTZ 100-25 MG] 1 each PO DAILY 02/04/18 [History] amLODIPine Besylate [Norvasc] 5 mg PO DAILY 02/04/18 [History] Acetaminophen/HYDROcodone [[place] 325-5 MG] 1 - 2 tab PO Q4H PRN #30 tab [Rx] Patient Handouts: Hernia, Adult, [id number], Preventing Constipation After Surgery Referrals: Hal Weinberg MD [Physician] - 02/14/18 3:00 pm (staple removal) PCP,None [Primary Care Provider] - - Discharge Summary/Plan Comment DC Time >30 min.: Yes - Patient Data Vitals - Most Recent: Last Vital Signs Temp 98.0 F 02/08/18 11:08 Pulse 62 02/08/18 11:08 Resp 16 02/08/18 11:08 BP 143/67 H 02/08/18 11:08 Pulse Ox 97 02/08/18 11:08 Weight - Most Recent: 159 lb 9.835 oz Med Orders - Current: Current Medications Discontinued Medications Hydrocodone Bitart/Acetaminophen ([place] 325-5 Mg) 1 - 2 tab PO Q4H PRN PRN Reason: Pain Last Admin: 02/08/18 14:00 Dose: 2 tab Amlodipine Besylate (Norvasc) 5 mg PO DAILY [facility] Last Admin: 02/08/18 08:13 Dose: 5 mg Atenolol (Tenormin) 25 mg PO DAILY [facility] Last Admin: 02/08/18 08:13 Dose: 25 mg Bisacodyl (Dulcolax) 10 mg RECTAL ONETIME ONE Stop: 02/06/18 06:41 Last Admin: 02/06/18 10:40 Dose: 10 mg Bupivacaine HCl (Marcaine 0.5%) Confirm Administered Dose 50 ml .ROUTE .[facility]-MED ONE Stop: 02/07/18 06:43 Dexamethasone (Dexamethasone) Confirm Administered Dose 4 mg .ROUTE .ST-MED ONE Stop: 02/04/18 11:44 Fentanyl (Sublimaze) Confirm Administered Dose 250 mcg .ROUTE .ST-MED ONE Stop: 02/04/18 11:43 Fentanyl (Sublimaze) Confirm Administered Dose 100 mcg .ROUTE .[facility]-MED ONE Stop: 02/07/18 07:06 Gabapentin (Neurontin) 300 mg PO TID [facility] Last Admin: 02/08/18 14:01 Dose: 300 mg Glycopyrrolate (Robinul) Confirm Administered Dose 1 mg .ROUTE .[facility]-MED ONE Stop: 02/04/18 11:44 Hydrochlorothiazide (Hydrochlorothiazide) 25 mg PO DAILY [facility] Last Admin: 02/08/18 08:12 Dose: 25 mg Hydromorphone HCl (Dilaudid) 1 mg IVPUSH ONETIME ONE Stop: 02/04/18 10:10 Last Admin: 02/04/18 10:27 Dose: 1 mg Hydromorphone HCl (Dilaudid) 0.5 mg IVPUSH ONETIME ONE Stop: 02/04/18 11:21 Last Admin: 02/04/18 11:25 Dose: 0.5 mg Hydromorphone HCl (Dilaudid Life Assurance Representative 15 Mg In Ns 30 Ml) 0 mg IV ASDIRECTED PRN; Protocol PRN Reason: [employer] PAIN CONTROL Last Admin: 02/07/18 09:40 Dose: 15 mg Sodium Chloride (Normal Saline) 1,000 mls @ 1,000 mls/hr IV ASDIRECTED [facility] Last Admin: 02/04/18 10:26 Dose: 1,000 mls/hr Piperacillin/Tazobactam/ (Dextrose 3.375 gm/ Premix) 50 mls @ 100 mls/hr IV ONETIME ONE Stop: 02/04/18 11:44 Last Admin: 02/04/18 11:18 Dose: 100 mls/hr Sodium Chloride (Normal Saline) Confirm Administered Dose 10 mls @ as directed .ROUTE .[facility]-MED ONE Stop: 02/04/18 13:07 Lactated Ringer's (Ringers, Lactated) Confirm Administered Dose 1,000 mls @ as directed .ROUTE .STK-MED ONE Stop: 02/04/18 13:07 Potassium Chloride/Dextrose/Sod Cl (D5 1/2 Ns W/ 20 Meq/L Kcl) 1,000 mls @ 125 mls/hr IV ASDIRECTED [facility] Last Admin: 02/06/18 01:29 Dose: 125 mls/hr Piperacillin/Tazobactam/ (Dextrose 3.375 gm/ Premix) 50 mls @ 100 mls/hr IV Q6H [facility] Last Admin: 02/08/18 13:27 Dose: Not Given Potassium Chloride/Dextrose/Sod Cl (D5 1/2 Ns W/ 20 Meq/L Kcl) 1,000 mls @ 50 mls/hr IV ASDIRECTED [facility] Last Admin: 02/06/18 17:05 Dose: 50 mls/hr Ketamine HCl (Ketalar) Confirm Administered Dose 500 mg .ROUTE .STK-MED ONE Stop: 02/04/18 11:49 Lidocaine/Epinephrine (Xylocaine 1% With Epinephrine 1:100,000) Confirm Administered Dose 50 ml .ROUTE .STK-MED ONE Stop: 02/07/18 06:43 Losartan Potassium (Cozaar) 100 mg PO DAILY [facility] Last Admin: 02/08/18 08:13 Dose: 100 mg Metoprolol Tartrate (Lopressor) 5 mg IVPUSH Q6H [facility] Last Admin: 02/07/18 10:00 Dose: Not Given Midazolam HCl (Versed 1 Mg/Ml) Confirm Administered Dose 2 mg .ROUTE .STK-MED ONE Stop: 02/04/18 11:43 Midazolam HCl (Versed 1 Mg/Ml) Confirm Administered Dose 2 mg .ROUTE .STK-MED ONE Stop: 02/07/18 07:06 Naloxone HCl (Narcan) 0.1 mg IV ASDIRECTED PRN PRN Reason: decreased respiratory rate Naloxone HCl (Narcan) Confirm Administered Dose 0.4 mg .ROUTE .STK-MED ONE Stop: 02/04/18 13:21 Neostigmine Methylsulfate (Neostigmine) Confirm Administered Dose 5 mg .ROUTE .STK-MED ONE Stop: 02/04/18 11:44 Ondansetron HCl (Zofran) 4 mg IVPUSH ONETIME ONE Stop: 02/04/18 10:10 Last Admin: 02/06/18 09:35 Dose: Not Given Ondansetron HCl (Zofran) Confirm Administered Dose 4 mg .ROUTE .STK-MED ONE Stop: 02/04/18 11:44 Ondansetron HCl (Zofran) 4 mg IVPUSH Q6H PRN PRN Reason: Nausea/Vomiting Propofol (Diprivan 20 Ml) Confirm Administered Dose 200 mg .ROUTE .STK-MED ONE Stop: 02/04/18 11:44 Propofol (Diprivan 20 Ml) Confirm Administered Dose 200 mg .ROUTE .STK-MED ONE Stop: 02/07/18 07:06 Rocuronium [place] (Zemuron) Confirm Administered Dose 50 mg .ROUTE .STK-MED ONE Stop: 02/04/18 11:44 Succinylcholine Chloride (Quelicin) Confirm Administered Dose 200 mg .ROUTE .STK -MED ONE Stop: 02/04/18 11:44
== END 2018-02-08 16:45 | disposition home or self-care (01) | DRG 344 ==
LOC: JP.ED 09:23 → JP.SDS 11:08 → JP.MS 13:25
PROVIDERS: ADMIT Surgery; ATTEND Surgery
PROC: 0WQF0ZZ Repair Abdominal Wall, Open Approach (ICD-10-PCS; principal; 2018-02-04)
PROC: 0DB80ZX Excision of Small Intestine, Open Approach, Diagnostic (ICD-10-PCS; 2018-02-04)
PROC: 30233N1 Transfusion of Nonautologous Red Blood Cells into Peripheral Vein, Percutaneous Approach (ICD-10-PCS; 2018-02-06)
PROC: 0WQF0ZZ Repair Abdominal Wall, Open Approach (ICD-10-PCS; 2018-02-07)
DX: K43.0 Incisional hernia with obstruction, without gangrene (principal); K55.029 Acute infarction of small intestine, extent unspecified; R10.84 Generalized abdominal pain; Z48.1 Encounter for planned postprocedural wound closure; Z85.038 Personal history of other malignant neoplasm of large intestine; Z98.84 Bariatric surgery status; Z98.0 Intestinal bypass and anastomosis status; Z90.49 Acquired absence of other specified parts of digestive tract; B96.20 Unspecified Escherichia coli [E. coli] as the cause of diseases classified elsewhere; B95.4 Other streptococcus as the cause of diseases classified elsewhere; D64.9 Anemia, unspecified
CPT/HCPCS: 36415; 74176; 80053; 82150; 83605; 83690; 85025; 87070; 87075; 87077 ×2; 87186; 87205; 88302; 88307; 96361; 96365; 96375; 99284; 99285; J0330; J1100; J1170 ×2; J2250; J2310; J2405 ×2; J2543; J2704; J2710; J3010; J7030; J7050; J7120; 36430; 80048; 85027; 86850; 86900; 86901; 86920; 86922; 94762; A9270-GY; J3480; J3490; P9016